=== PATIENT | female | born 1960 | race Native Hawaiian/Other Pacific Islander ===

== ENCOUNTER 2019-12-11 15:52 | Inpatient (IN) | payer OTHER ==
[2019-12-11] VITALS (10 sets, daily range): BP systolic 130–151; BP diastolic 60–112; TEMP 97.8–98.1; Ht 170.2 cm; Wt 57.7 kg
[~2019-12-11] VITALS: Ht 170.2 cm; Wt 57.7 kg
[~2019-12-11 15:52] MED LIST: A-HYDROCORT100 MG IJ; BENADRYL25 M1 OR; CARI350T15 PO; ESCITALOPRAM20 MG PO; LEVO0.0218 PO; LOTENSIN HCT1 TA1 PO; MONTELUKAST SOD10 MG PO; NORCO 10/325***1 TAB PO; OMEP20CA PO; REQUIP1 MG OR; SIMV40TA57 PO; SPIRIVA IN
[2019-12-11 16:38] LABS: PLATELET COUNT 287 K/uL (152-353)
[2019-12-11 16:43] LABS: POTASSIUM 3.2 mmol/L (3.6-5.2)
[2019-12-12] VITALS (18 sets, daily range): BP systolic 109–137; BP diastolic 40–77; TEMP 97.6–99.1
[2019-12-12 05:39] LABS: PLATELET COUNT 190 K/uL (152-353)
[2019-12-12 05:52] LABS: POTASSIUM 3.4 mmol/L (3.6-5.2)
[2019-12-13] VITALS: BP 138/76
[2019-12-13 04:00] VITALS: BP 142/68; TEMP 98.9
[2019-12-13 07:30] VITALS: BP 133/84; TEMP 97.6
[2019-12-13 11:50] VITALS: BP 134/79; TEMP 98.1
[2019-12-13] MEDS ORDERED: FERROUS SULF325 M1 PO (12:30)
[2019-12-13] MEDS ORDERED: DOCU100C10 PO (12:32)
[2019-12-13] MEDS ORDERED: PHENERGAN SUP12.5 MG RE (12:34)
== END 2019-12-13 15:30 | disposition home or self-care (01) | DRG 641 ==
LOC: ED 15:52 → PCU 18:10 → ICU 20:53 → PCU 12-12 19:13
PROVIDERS: Family Medicine; ADMIT Family Medicine
DX: E86.0 Dehydration (principal); E87.6 Hypokalemia; I10 Essential (primary) hypertension; E78.49 Other hyperlipidemia; J44.9 Chronic obstructive pulmonary disease, unspecified; E03.8 Other specified hypothyroidism; G25.81 Restless legs syndrome; K21.9 Gastro-esophageal reflux disease without esophagitis; F41.8 Other specified anxiety disorders
CPT/HCPCS: 36415; 80053; 80307; 80320; 81000; 82150; 82550; 83540; 83690; 83735; 84484; 85027; 93005; 96361; 96365; 96375; 96376; 99285; J2060; J2550; J2560; J2916; J3411; J3475; J3490

== ENCOUNTER 2021-05-04 09:42 | Outpatient (CLI) | payer OTHER ==
[~2021-05-04 09:42] MED LIST changes: +DOCU100C10 PO; +FERROUS SULF325 M1 PO; +PHENERGAN SUP12.5 MG RE
== END 2021-05-04 21:46 | disposition home or self-care (01) ==
LOC: RAD 09:42
PROVIDERS: ATTEND Registered Nurse
DX: M25.522 Pain in left elbow (principal); R22.32 Localized swelling, mass and lump, left upper limb; M54.40 Lumbago with sciatica, unspecified side

== ENCOUNTER 2023-07-22 07:15 | Emergency (ER) | payer OTHER ==
[~2023-07-22] VITALS: Ht 170.2 cm; Wt 54.4 kg
[2023-07-22 07:15] VITALS: BP 130/73; TEMP 97.3
[2023-07-22 08:36] LABS: PLATELET COUNT 279 K/uL (152-353)
[2023-07-22 08:45] LABS: POTASSIUM 3.3 mmol/L (3.6-5.2)
== END 2023-07-22 10:58 | disposition home or self-care (01) ==
LOC: ED 07:15
PROVIDERS: Family Medicine
DX: S39.012A Strain of muscle, fascia and tendon of lower back, initial encounter (principal); I10 Essential (primary) hypertension; E87.6 Hypokalemia; J44.9 Chronic obstructive pulmonary disease, unspecified; R00.0 Tachycardia, unspecified; F17.210 Nicotine dependence, cigarettes, uncomplicated
CPT/HCPCS: 80053; 80307; 81000; 82550; 85027; 93005; 96372; 99283; J1885; J2930